=== PATIENT | female | born 1990 | race African-American/Black ===

== ENCOUNTER 2022-01-14 09:38 | Emergency (ER) | payer MEDICAID ==
[~2022-01-14] VITALS: Ht 175.3 cm; Wt 79.5 kg
[2022-01-14 09:47] VITALS: BP 124/67
== END 2022-01-14 13:10 | disposition home or self-care (01) ==
LOC: ER 09:38
DX: L73.1 Pseudofolliculitis barbae (principal); L73.9 Follicular disorder, unspecified
CPT/HCPCS: 81025; 99282